=== PATIENT | female | born 1945 | race Caucasian/White ===

== ENCOUNTER → 2023-07-07 10:51 | Outpatient (REF) | payer MEDICARE, OTHER, SELFPAY | LOC: WDC 10:51 | PROVIDERS: ATTENDING PHYSICIAN Internal Medicine Hematology & Oncology; FAMILY PHYSICIAN Internal Medicine | DX: Z12.31 Encounter for screening mammogram for malignant neoplasm of breast (principal); N64.4 Mastodynia | CPT/HCPCS: 77063; 77067 ==

== ENCOUNTER → 2024-01-01 12:53 | Outpatient (REF) | payer MEDICARE, OTHER, SELFPAY | LOC: HWRAD 12:53 | PROVIDERS: ATTENDING PHYSICIAN Nurse Practitioner Adult Health; FAMILY PHYSICIAN Internal Medicine | DX: R10.2 Pelvic and perineal pain (principal); N83.209 Unspecified ovarian cyst, unspecified side | CPT/HCPCS: 76830; 76856 ==

== ENCOUNTER → 2024-01-02 08:02 | Outpatient (REF) | payer MEDICARE, OTHER, SELFPAY | LOC: HWEVLT 08:02 | PROVIDERS: ATTENDING PHYSICIAN Radiology Vascular & Interventional Radiology | DX: I83.893 Varicose veins of bilateral lower extremities with other complications (principal) | CPT/HCPCS: 93970 ==

== ENCOUNTER 2024-01-17 16:37 | Emergency (ER) | payer MEDICARE, OTHER, SELFPAY ==
[2024-01-17 16:50] VITALS: BP 226/97
--- NOTE | 2024-01-17 18:02 | ED.GENMED ---
History of Present Illness
General
Chief Complaint: Fall
Source: patient
Time Seen by Provider: 01/17/24 17:11
History of Present Illness
History of Present Illness:
78-year-old female with past medical history of atrial fibrillation, previous nephrectomy presenting to the emergency department for evaluation after she was gardening and slipped on cut possibilities causing her to slip about 4 to 5 feet forward
onto the ground injuring her right shoulder, right hip and believing she hit her head on the ground. Patient states her main concern is right shoulder pain as she was able to ambulate following the fall. Patient takes a 81 mg aspirin but no other
anticoagulant or antiplatelet medications. Denies LOC, vomiting, severe headache, visual disturbances, focal weakness or numbness or any other concerns
Past History
Past History
ED Past Medical History: Arrthythmia, HTN and Hypothyroidism
ED Past Surgical History: Cardiac (Ablation) and Other
Social History
Tobacco: Non-smoker
Alcohol: Occasional
Drug: None
Personal:
Living: with family
Employment: Employed
Family History
Family History: Negative Diabetes, Hypertension, Early CAD, Asthma or Cancer
Review of Systems
Review of Systems
All Other Systems: ROS reviewed and negative except as documented in HPI and ROS
Phy Exam
Physical Exam
Physical Exam:
GENERAL: Alert , in no apparent distress
EYE: conjunctiva clear
Head: Normocephalic atraumatic
NECK: Supple, no midline ttp
ENT: mmm.
LUNGS: no acute respiratory distress
NEUROLOGICAL: Alert and oriented
SKIN: Warm and dry, skin intact.
MUSCULOSKELETAL: Right Shoulder: ttp over lateral clavicle. LROM 2/2 pain. (+)NVI, remainder of extremity without signs of trauma. Right Hip: no focal ttp, ambulates with steady gait. warm and well perfused.
PSYCH: Normal and appropriate interaction.
Scores
Heart Failure Risk
Heart Failure Risk Score: Not Applicable
Heart Score for Chest Pain Patients
STEMI patient?: Not applicable
Withdrawal Assessment of Alcohol
Withdrawal Assessment Completed?: Not applicable
Course
Orders/Labs/Results
Orders:
Orders
01/17/24 16:54
CT Cervical Spine W/o Iv Contr Urgent
Comment:
Reason For Exam: FALL
CT Head W/o Iv Contrast Urgent
Comment:
Reason For Exam: FALL
Hip, Right 2-3 Views [CR Hip - RT w/wo Pel 2-3 Vw*] Urgent
Comment:
Reason For Exam: FALL
Include a pelvis x-ray?: Yes
Shoulder, Right, Trauma [CR Shoulder, Trauma - Right] Urgent
Comment:
Reason For Exam: FALL
01/17/24 17:46
Sling Right-Treatment ONCE
Vital Signs
Initial and Last Documented VS:
Initial Vital Signs
Temp Pulse Resp BP Pulse Ox
98.7 F 61 20 226/97 99
01/17/24 16:50 01/17/24 16:50 01/17/24 16:50 01/17/24 16:50 01/17/24 16:50
Last Documented Vital Signs
Temp Pulse Resp BP Pulse Ox
98.7 F 61 20 226/97 99
01/17/24 16:50 01/17/24 16:50 01/17/24 16:50 01/17/24 16:50 01/17/24 16:50
MDM/Problems Addressed
Differential Diagnosis Includes:
clavicle fracture, humerus fracture, humerus dislocation, pelvic fx, head contusion , ICH
MDM/Problems Addressed:
78-year-old female presenting to the emergency department for evaluation following next open fall resulting in right shoulder, right hip and head injury. X-ray of the shoulder, hip and CT of the head and cervical spine were ordered. Patient
otherwise resting comfortably
Chronic conditions affecting care: HTN
*Radiology
Radiology exam reviewed: preliminary read by ED provider (Lateral clavicle fracture) and radiology read reviewed
*Pulse Oximetry
Patient hypoxic: no
*Critical Care Note
Total Time (30-74mins, 75-104mins- exclusive of procedures): Not Applicable
Patient Management
Escalation/DeEscalation of care consider admission/obs:
Patient's x-ray of the clavicle does show a lateral clavicle fracture but no dislocation. X-ray of the right hip unremarkable. CT of the head and cervical spine without any acute findings. Patient was provided with a sling, information for
orthopedics and can take Tylenol as needed for pain. Aware of return precautions to the emergency room.
ED Attending Note
-
Portions of this chart may have been created with voice recognition software.� Occasional wrong word or��sound alike� substitutions may have occurred due to the inherent limitations of voice recognition software.
Discharge Plan
Departure
Patient Disposition: Home (Routine Discharge)
Date of Disposition: 01/17/24
Time of Disposition: 18:02
Patient with high blood pressure during this ER visit?: Yes
Discharge Problem:
Closed fracture of right clavicle, Accidental fall, Hypertension
Instructions: Fractures - Clavicle (Adult)
Prescriptions:
No Action
levothyroxine 88 MCG tablet
88 mcg PO DAILY
multivitamin Tablet
1 tab PO DAILY
trazodone 50 mg Tablet
50 mg PO HS
valsartan 160 mg Tablet
160 mg PO DAILY
coenzyme Q10 [CoQ-10] 100 mg Capsule
100 mg PO DAILY
red yeast rice 600 mg Tablet
600 mg PO DAILY
Refresh Optive Wili-3 (PF) 0.5-1-0.5 % Dropperette
1 drp OPHTHALMIC (EYE) TID
Ca-D3-mag od-vtks-fty-shahrzad-bor [Calcium 600-D3 Plus (mag-zinc)] 600 mg calcium- 20 mcg-50 mg Tablet
1 tab PO TID
lutein-zeaxanthin 20 mg- 1,000 mcg Capsule
1 cap PO DAILY
aspirin 81 mg Capsule
81 mg PO DAILY
metoprolol succinate 25 MG tablet extended release 24 hr
25 mg PO BID Qty: 0 0RF
Referrals:
James Barnett MD [Active] - ([facility])
Jerry Duron MD [Active] - ([facility])
UNKNOWN - PT DOES,NOT KNOW [Family Provider] -
Interventions
Interventions:
*Risk Screen - Suicide Last Done: 01/17/24 16:50
*General Assessment Last Done: 01/17/24 16:50
*Neglect/Abuse Screening Last Done: 01/17/24 16:50
*ED COVID-19 Vaccine History Last Done: 01/17/24 16:50
ED-Musculoskeletal Assessment Last Done: 01/17/24 17:24
ED- Neurological Assessment Last Done: 01/17/24 17:24
ED-Skin Assessment Last Done: 01/17/24 17:24
Discharge Date and Time
Print Language: TOGOLESE
[2024-01-17 18:38] VITALS: BP 188/83
[2024-01-17 18:39] VITALS: BP 188/83
== END 2024-01-17 18:40 | disposition home or self-care (01) ==
LOC: EMR 16:37
PROVIDERS: EMERGENCY PHYSICIAN Emergency Medicine
DX: S42.001A Fracture of unspecified part of right clavicle, initial encounter for closed fracture (principal); I10 Essential (primary) hypertension; W19.XXXA Unspecified fall, initial encounter; E03.9 Hypothyroidism, unspecified; I48.91 Unspecified atrial fibrillation; Z82.49 Family history of ischemic heart disease and other diseases of the circulatory system; Z86.73 Personal history of transient ischemic attack (TIA), and cerebral infarction without residual deficits; Z90.5 Acquired absence of kidney
CPT/HCPCS: 99284; 70450; 72125; 73030; 73502

== ENCOUNTER → 2024-05-02 09:58 | Outpatient (REF) | payer MEDICARE, OTHER, SELFPAY | LOC: MRI 3T 09:58 | PROVIDERS: ATTENDING PHYSICIAN Internal Medicine | DX: R51.9 Headache, unspecified (principal) | CPT/HCPCS: 70551 ==

== ENCOUNTER → 2024-08-20 09:39 | Outpatient (REF) | payer MEDICARE, OTHER, SELFPAY | LOC: WDC 09:39 | PROVIDERS: ATTENDING PHYSICIAN Internal Medicine Hematology & Oncology; FAMILY PHYSICIAN Internal Medicine | DX: N64.4 Mastodynia (principal); Z85.3 Personal history of malignant neoplasm of breast; C50.919 Malignant neoplasm of unspecified site of unspecified female breast | CPT/HCPCS: 76642; 77062; 77066 ==

== ENCOUNTER → 2024-08-27 09:00 | Outpatient (REF) | payer MEDICARE, OTHER, SELFPAY ==
--- NOTE | 2024-08-27 15:05 | OID.BR.INTR ---
[facility] Breast Navigator - Initial
- -
Date of Contact: 08/27/24
Met with patient. Patient given written information on navigator service available at [facility]. Will follow up as needed per protocol.
== END ==
LOC: WDC 09:00
PROVIDERS: ATTENDING PHYSICIAN Internal Medicine Hematology & Oncology; FAMILY PHYSICIAN Internal Medicine
DX: N63.12 Unspecified lump in the right breast, upper inner quadrant (principal)
CPT/HCPCS: 88305; 19083; 88341; 88342; 88360; A4648

== ENCOUNTER 2024-09-29 06:17 | Day surgery (SDC) | payer MEDICARE, OTHER, SELFPAY | END 2024-09-29 08:39 | disposition home or self-care (01) | LOC: GI 06:17 | PROVIDERS: ATTENDING PHYSICIAN Internal Medicine | DX: R93.3 Abnormal findings on diagnostic imaging of other parts of digestive tract (principal); K57.30 Diverticulosis of large intestine without perforation or abscess without bleeding; K64.8 Other hemorrhoids | CPT/HCPCS: 45378 ==

== ENCOUNTER 2024-10-28 13:14 | Inpatient (IN) | payer MEDICARE, OTHER, SELFPAY ==
[2024-10-21 12:02] LABS: Hematocrit 40.6 % (37.0-47.0); Hemoglobin 13.5 g/dL (12.0-16.0); Mean Corp Hgb Conc. 33.3 g/dL (33.0-37.0); Mean Corpuscular Volume 90.4 fL (81.0-99.0); Nucleated Red Blood Cells % 0 %; Platelet Count 189 10^3/uL (130-400); Red Cell Dist. Width 13.7 % (11.5-14.5)
[2024-10-21 12:27] LABS: ALT (SGPT) 22 U/L (0-35); AST (SGOT) 30 U/L (14-36); Albumin 4.4 g/dl (3.5-5.0); Alkaline Phosphatase 60 U/L (38-126); Blood Urea Nitrogen 25 mg/dl (7-17); Calcium 9.9 mg/dl (8.4-10.2); Carbon Dioxide 25 mmol/L (22-30); Chloride 104 mmol/L (98-107); Glucose 92 mg/dl (70-99); Potassium 4.6 mmol/L (3.5-5.1); Sodium 136 mmol/L (135-145); Total Protein 7.0 g/dl (6.3-8.2); eGFR 57.66
[2024-10-21 12:33] LABS: Prealbumin (Transthyretin) 27.1 mg/dl (17.6-36.0)
[2024-10-21 12:46] LABS: Vitamin D, 25-OH*** 99.2 ng/mL (30-80)
[2024-10-28] VITALS (12 sets, daily range): BP systolic 5–195; BP diastolic 56–80; BMI 19.6
[2024-10-28] MEDS: NORMOSOL-R/PLASMALYTE-A 1000 IV ×2 (13:52→19:58)
[2024-10-28] MEDS: TYLENOL 1000 MG PO (13:53)
[2024-10-28] MEDS: LOVENOX 40 MG SC (14:37)
--- NOTE | 2024-10-28 17:22 | W.IMMPOSTOP ---
Surgical Immed Post Op Note
-
Primary Surgeon: Juancho
Assisting Surgeon: None
Pre-op Diagnosis: Recurent right breast carcinoma
Post-op Diagnosis: Same
Procedure Performed: Right simple mastectomy
Anesthesia Type: LMA general
Specimen / Cultures: Right breast
Estimated Blood Loss: 10cc
Complications: None
Operative Findings: None
--- NOTE | 2024-10-28 17:23 | OR.RPT ---
Operative Report
Operative Report
Date of surgery: 10/28/2024
Surgeon: Juancho
Preoperative diagnosis: Recurrent right breast carcinoma
Postoperative diagnosis: Recurrent right breast carcinoma
Procedure: Right simple mastectomy
The patient is a 79-year-old female who been treated in 2020 for invasive lobular carcinoma and underwent breast conservation surgery followed by radiation therapy. She had also had axillary sampling at that time. She presents now with a
recurrence and opted for mastectomy without reconstruction. No abnormal axillary lymph nodes were noted on imaging or exam and therefore axillary sampling was not warranted.
On the day of the surgery the patient presented to same-day surgical services where she was prepped and verified site and procedure. DVT prophylaxis with provide the patient was taken to the operating room. In the supine position LMA general
anesthesia was induced. The right breast was prepped and draped in the usual sterile fashion and all team members performed an appropriate timeout. Standard Silver incision was made sharply with the blade and superior and inferior skin flaps were
raised with the PlasmaBlade. The breast was taken off the chest wall in a superior to inferior direction. Time out of body was noted and the specimen was oriented. This was sent for permanent analysis.
Hemostasis was verified. #15 Luis E drain was passed through the inferior skin flap and secured to the skin with 2-0 Prolene. Skin was closed using simple interrupted 4-0 Vicryl on subcutaneous tissue and skin was closed with paula due to the
previous irradiated tissue. Sterile dressing was applied. All sponge needle and instrument counts were correct and the patient was transferred to the recovery room in stable condition thank you
([id number])
[2024-10-28] MEDS: DILAUDID 0.25 MG IV (17:37)
[2024-10-28] MEDS: MORPHINE SULFATE 1 MG IV ×2 (17:50→18:03)
--- NOTE | 2024-10-28 19:24 | PTCARENOTE ---
Pt arrived to [facility] s/p right mastectomy. Pt has right breast dressing with paula, telfa, 4x4, abd pad, and surgical bra. EILEEN drain on right breast with sanguineous drainage. Pt oriented to room and call bed. Bed locked and in lowest position.
Care ongoing.
[2024-10-28] MEDS: TOPROL XL 25 MG PO (19:55)
[2024-10-28] MEDS: RESTASIS 0.05% OPHTHALMIC EMULSION 1 DROPS OPHTH (19:56)
[2024-10-28] MEDS: COLACE 100 MG PO (19:56)
--- NOTE | 2024-10-28 20:00 | PTCARENOTE ---
Resumed care of pt sitting up in bed AAOx3. POX 99% on RA. lungs clear. + bowel, Pt ambulating to bathroom with assist without difficulty. Pt post right mastectomy without reconstruction, Dressing intact. EILEEN drain in place. Pt reports pain at
tolerable level at this time. Pt upset kitchen was closed to order dinner, Box lunch provided. Pt refusing IVF at this time, pt states 'Im eating and drinking I dont need that'. Knee high seq in place. Family at bedside. Call gomez in reach. Will
continue to monitor.
[2024-10-28] MEDS: DESYREL 50 MG PO (22:28)
[2024-10-28] MEDS: TYLENOL 650 MG PO (22:29)
[2024-10-29 03:15] VITALS: BP 133/57
[2024-10-29] MEDS: SYNTHROID 88 MCG PO (06:19)
[2024-10-29 06:21] LABS: Hematocrit 33.2 % (37.0-47.0); Hemoglobin 11.4 g/dL (12.0-16.0)
[2024-10-29 06:48] LABS: Blood Urea Nitrogen 23 mg/dl (7-17); Calcium 8.9 mg/dl (8.4-10.2); Carbon Dioxide 27 mmol/L (22-30); Chloride 102 mmol/L (98-107); Estimated Creatinine Clearance 44 ml/min; Glucose 131 mg/dl (70-99); Potassium 4.5 mmol/L (3.5-5.1); Sodium 129 mmol/L (135-145); eGFR > 60.00
[2024-10-29 07:20] VITALS: BP 132/41
[2024-10-29] MEDS: NORMOSOL-R/PLASMALYTE-A IV (07:31)
[2024-10-29] MEDS: COLACE 100 MG PO (07:31)
[2024-10-29] MEDS: TOPROL XL 25 MG PO (07:33)
[2024-10-29] MEDS: RESTASIS 0.05% OPHTHALMIC EMULSION 1 DROPS OPHTH (07:34)
[2024-10-29] MEDS: DIOVAN 320 MG PO (07:35)
--- NOTE | 2024-10-29 07:54 | W.PN.UPDATE ---
Update Note
Progress Note Update
POD #1 S/P right simple mastectomy for recurrent right breast carcinoma. Pt is doing well tolerating PO intake and PO pain med. Flaps are intact. Discharge to
home with VNA in place. See in office in 10-14 days. Path pending.
--- NOTE | 2024-10-29 08:03 | W.DS.TRANS ---
DC Summary - Processing Technologist
-
Discharge Instructions:
Sleep Apnea Risk Intermediate
Diet No restrictions
Activity No strenuous activity
Driving Restrictions No driving for 1 week
Bathing Restrictions OK to Shower
Other Services VN
Wound Care Change dressing daily, empty and record drainage
, strip drainage tube
Instructions:
Stand-Alone Forms:
Changes to Home Medications: No
Discharge Medications:
DC Medications w/original date entered in [facility]
aspirin 81 mg capsule 81 mg PO DAILY 10/18/21
calcium 600 mg-D3 20 mcg-magnesium 50 ba-Tu-kdwrrz-jayden-boron tablet (Calcium 600-D3 Plus (mag-zinc)) 1 tab PO BID 10/18/21
coenzyme Q10 100 mg capsule (CoQ-10) 100 mg PO DAILY 10/18/21
lutein 20 mg-zeaxanthin 1,000 mcg capsule 1 cap PO DAILY 10/18/21
multivitamin 1 tab PO DAILY 10/18/21
red yeast rice 600 mg tablet 600 mg PO DAILY 10/18/21
trazodone 50 mg tablet 50 mg PO HS 10/18/21
valsartan 160 mg tablet 320 mg PO DAILY 10/18/21
L.acidophilus-B.animalis-B.bifidum 25 billion cell-FOS 100 mg capsule (Probiotic Complex) 1 cap PO DAILY 10/21/24
ascorbic acid (vitamin C) 1,000 mg tablet (Vitamin C) 1,000 mg PO DAILY 10/21/24
cyclosporine 0.05 % eye drops in a dropperette (Restasis) 1 drp ophthalmic (eye) Q12H DRY EYES 10/21/24
fish, borage, flaxseed oils-omega 3,6,9 comb no.1 1,200 mg capsule ([place]rero 3-6-9) 1 cap PO DAILY 10/21/24
levothyroxine 88 mcg tablet (Synthroid) 88 mcg PO DAILY 10/21/24
metoprolol succinate 25 mg tablet,extended release 24 hr (Toprol XL) 25 mg PO BID 10/21/24
propylene glycol 0.6 % eye drops (Systane Complete) 1 drp ophthalmic (eye) DAILY PRN DRY EYES 10/21/24
Home Medication Changes
Pending Results: Yes (Pathology report)
Total time spent discharging patient (in min): 15
[2024-10-29 11:24] VITALS: BP 136/49
--- NOTE | 2024-10-29 11:58 | CM ---
Alert awake oriented patient who lives with her James and sister Bonnie is stayingwith her for 2 weeks to assist.She lives in 2 story home with stair glides enter and to bed/bathroom. She is independent in activates of daily living.She does
drive .Offered VN to assist with EILEEN she delcined VN need.
No VN in past . No SNF hx
Pharmacy [facility] [place]
PCP Dr Jama
PLAN Home with no needs
== END 2024-10-29 14:29 | disposition home or self-care (01) | DRG 583 ==
LOC: 2 SOUTH 13:14
PROVIDERS: ADMITTING PHYSICIAN Surgery; FAMILY PHYSICIAN Internal Medicine; REFERRING PHYSICIAN Internal Medicine Cardiovascular Disease
PROC: 0HTT0ZZ Resection of Right Breast, Open Approach (ICD-10-PCS; 2024-10-28)
DX: C50.411 Malignant neoplasm of upper-outer quadrant of right female breast (principal); E03.9 Hypothyroidism, unspecified; I12.9 Hypertensive chronic kidney disease with stage 1 through stage 4 chronic kidney disease, or unspecified chronic kidney disease; N18.2 Chronic kidney disease, stage 2 (mild); Z92.3 Personal history of irradiation; Z88.1 Allergy status to other antibiotic agents; Z88.2 Allergy status to sulfonamides; Z88.7 Allergy status to serum and vaccine; Z88.8 Allergy status to other drugs, medicaments and biological substances; Z91.048 Other nonmedicinal substance allergy status; Z79.82 Long term (current) use of aspirin; Z79.890 Hormone replacement therapy; Z87.442 Personal history of urinary calculi; Z87.81 Personal history of (healed) traumatic fracture; Z90.5 Acquired absence of kidney
CPT/HCPCS: 36415; 80048; 80053; 82306; 84134; 85014; 85018; 85025; 88307; A4648; C1729; L8000

== ENCOUNTER → 2024-11-28 09:15 | Outpatient (REF) | payer MEDICARE, OTHER, SELFPAY | LOC: WDC 09:15 | PROVIDERS: ATTENDING PHYSICIAN Surgery | DX: N64.89 Other specified disorders of breast (principal) | CPT/HCPCS: 19000; 76642; 76942 ==

== ENCOUNTER 2024-12-30 10:16 | Outpatient (RCR) | payer MEDICARE, OTHER, SELFPAY | END 2024-12-30 23:59 | disposition home or self-care (01) | LOC: RPT 10:16 | PROVIDERS: ATTENDING PHYSICIAN Surgery; FAMILY PHYSICIAN Internal Medicine | DX: C50.411 Malignant neoplasm of upper-outer quadrant of right female breast (principal); L59.8 Other specified disorders of the skin and subcutaneous tissue related to radiation; M62.81 Muscle weakness (generalized); Z17.0 Estrogen receptor positive status [ER+]; Z73.6 Limitation of activities due to disability | CPT/HCPCS: 97163; 97530 ==

== ENCOUNTER 2025-02-10 08:36 | Outpatient (RCR) | payer MEDICARE, OTHER, SELFPAY | END 2025-02-10 23:59 | disposition home or self-care (01) | LOC: RPT 08:36 | PROVIDERS: ATTENDING PHYSICIAN Surgery; FAMILY PHYSICIAN Internal Medicine | DX: C50.411 Malignant neoplasm of upper-outer quadrant of right female breast (principal); L59.8 Other specified disorders of the skin and subcutaneous tissue related to radiation; M62.81 Muscle weakness (generalized); Z17.0 Estrogen receptor positive status [ER+]; Z73.6 Limitation of activities due to disability | CPT/HCPCS: 97110; 97140; 97530 ==

== ENCOUNTER → 2025-02-25 09:40 | Outpatient (REF) | payer MEDICARE, OTHER, SELFPAY | LOC: RAD 09:40 | PROVIDERS: ATTENDING PHYSICIAN Internal Medicine Hematology & Oncology | DX: Z78.0 Asymptomatic menopausal state (principal); C50.411 Malignant neoplasm of upper-outer quadrant of right female breast | CPT/HCPCS: 77080 ==

== ENCOUNTER 2025-03-11 07:23 | Outpatient (RCR) | payer MEDICARE, OTHER, SELFPAY | END 2025-03-11 23:59 | disposition home or self-care (01) | LOC: RPT 07:23 | PROVIDERS: ATTENDING PHYSICIAN Surgery; FAMILY PHYSICIAN Internal Medicine | DX: C50.411 Malignant neoplasm of upper-outer quadrant of right female breast (principal); L59.8 Other specified disorders of the skin and subcutaneous tissue related to radiation; M62.81 Muscle weakness (generalized); Z17.0 Estrogen receptor positive status [ER+]; Z73.6 Limitation of activities due to disability | CPT/HCPCS: 97110; 97112; 97140 ==

== ENCOUNTER 2025-04-06 12:25 | Outpatient (RCR) | payer MEDICARE, OTHER, SELFPAY | END 2025-04-06 23:59 | disposition home or self-care (01) | LOC: RPT 12:25 | PROVIDERS: ATTENDING PHYSICIAN Surgery; FAMILY PHYSICIAN Internal Medicine | DX: C50.411 Malignant neoplasm of upper-outer quadrant of right female breast (principal); L59.8 Other specified disorders of the skin and subcutaneous tissue related to radiation; M62.81 Muscle weakness (generalized); Z17.0 Estrogen receptor positive status [ER+]; Z73.6 Limitation of activities due to disability | CPT/HCPCS: 97110; 97140; 97530 ==